=== PATIENT | male | born 1955 | race Caucasian/White ===

== ENCOUNTER 2016-06-03 15:15 | Emergency (ER) | payer MEDICAID ==
[~2016-06-03 15:15] MED LIST: ALBUTEROL; AMOXICILLIN500 M2 PO; AMOXICILLIN875 M1 PO; ASPIRIN81 MG PO; ATENOLOL100 MG; ATENOLOL100 MG PO; ATENOLOL50 M1 PO; ATIVAN1 M2 PO; ATIVAN1 MG; ATIVAN1 MG PO; CLINDAMYCIN HC300 M2 PO; CRESTOR20 MG PO; DICLOFENAC POTA50 M1 PO; ENALAPRIL MALEA20 MG; FENOFIBRATE145 M2 PO; FLEXERIL10 MG PO; HYDROCODON-ACE1 EA16 PO; IBUPROFEN200 M1 PO; LIPITOR20 MG PO; LISINOPRIL20 M1 PO; NORCO 10/325 TA1 TAB PO; NORCO 5-325 TA1 EACH PO; NORCO 5/325 TAB1 TAB PO; NORVASC5 M2 PO; NORVASC5 MG; NORVASC5 MG PO; OXYCODONE HCL5 M1 PO; PENICILLIN V P500 M1 PO; PERCOCET 10-321 EACH PO; PERCOCET 5-3251 EACH PO; PERCOCET 5/3251 TAB; PERCOCET 5/3251 TAB PO; PRILOSEC OTC20 MG PO; PROTONIX40 MG; PROVENTIL HFA6.7 G1 INH; ROSUVASTATIN CA20 MG PO; SPIRIVA18 MC1 IH; SYMBICORT 160-4.6 GM IH; TRAMADOL HCL50 M2 PO; TRILIPIX135 MG PO; ULTRAM50 M1 PO; ZOFRAN ODT4 MG PO; ZOFRAN4 M2 PO
[2016-06-03] MEDS ORDERED: PERCOCET 10-321 EACH PO (15:29)
[2016-06-03] MEDS ORDERED: KLONOPIN2 M1 PO (15:30)
[2016-06-03] MEDS ORDERED: ZOFRAN ODT4 MG SL (15:32)
[2016-06-03] MEDS ORDERED: ALBUTEROL2.5 MG/3 M INH (15:33)
[2016-06-03] MEDS ORDERED: OMEPRAZOLE20 M3 PO (15:34)
[2016-06-03] MEDS ORDERED: FLOMAX0.4 M1 PO (15:34)
[2016-06-03] MEDS ORDERED: SYMBICORT 160-1 PUFF INH (15:35)
[2016-11-11] MEDS ORDERED: ATIVAN1 M2 PO (20:55)
[2016-11-16] MEDS ORDERED: NICODERM CQ1 EAC2 TOP (15:23)
[2016-11-16] MEDS ORDERED: OXYCODONE IR PO (15:24)
[2016-11-16] MEDS ORDERED: STOP HOME MEDICATION (15:26)
[2016-12-05] MEDS ORDERED: KLONOPIN1 M1 PO (23:41)
[2016-12-05] MEDS ORDERED: PERCOCET 10-321 EACH PO (23:42)
[2016-12-05] MEDS ORDERED: VIBRAMYCIN100 M1 PO (23:43)
[2016-12-05] MEDS ORDERED: NYSTATIN100000 UNI SSW (23:43)
[2016-12-06] MEDS ORDERED: PROMETHAZINE-C118 ML PO (00:09)
[2016-12-06] MEDS ORDERED: DELTASONE20 MG PO (00:09)
== END 2016-06-03 17:00 ==
LOC: EDMED 15:15
DX: J06.9 Acute upper respiratory infection, unspecified (principal); J44.9 Chronic obstructive pulmonary disease, unspecified; F17.210 Nicotine dependence, cigarettes, uncomplicated

== ENCOUNTER 2016-06-19 18:16 | Emergency (ER) | payer MEDICAID ==
[~2016-06-19 18:16] MED LIST changes: +ALBUTEROL2.5 MG/3 M INH; +FLOMAX0.4 M1 PO; +KLONOPIN2 M1 PO; +OMEPRAZOLE20 M3 PO; +SYMBICORT 160-1 PUFF INH; +ZOFRAN ODT4 MG SL
[2016-06-19] MEDS ORDERED: DICYCLOMINE HCL20 M1 PO (19:15)
[2016-06-19] MEDS ORDERED: NYSTATIN100000 UNI SSW (20:54)
[2016-06-19] MEDS ORDERED: AZITHROMYCIN250 M1 PO (20:54)
[2016-06-19] MEDS ORDERED: PROMETHAZINE-C118 ML PO (20:54)
[2016-11-11] MEDS ORDERED: ATIVAN1 M2 PO (20:55)
[2016-11-16] MEDS ORDERED: NICODERM CQ1 EAC2 TOP (15:23)
[2016-11-16] MEDS ORDERED: OXYCODONE IR PO (15:24)
[2016-11-16] MEDS ORDERED: STOP HOME MEDICATION (15:26)
[2016-12-05] MEDS ORDERED: KLONOPIN1 M1 PO (23:41)
[2016-12-05] MEDS ORDERED: PERCOCET 10-321 EACH PO (23:42)
[2016-12-05] MEDS ORDERED: NYSTATIN100000 UNI SSW (23:43)
[2016-12-05] MEDS ORDERED: VIBRAMYCIN100 M1 PO (23:43)
[2016-12-06] MEDS ORDERED: DELTASONE20 MG PO (00:09)
[2016-12-06] MEDS ORDERED: PROMETHAZINE-C118 ML PO (00:09)
== END 2016-06-19 21:05 ==
LOC: EDMED 18:16
DX: J44.9 Chronic obstructive pulmonary disease, unspecified (principal); J20.9 Acute bronchitis, unspecified; B37.0 Candidal stomatitis; E11.9 Type 2 diabetes mellitus without complications; I10 Essential (primary) hypertension; F17.200 Nicotine dependence, unspecified, uncomplicated; Z79.899 Other long term (current) drug therapy

== ENCOUNTER 2016-09-04 12:27 | Emergency (ER) | payer MEDICAID ==
[~2016-09-04 12:27] MED LIST changes: +AZITHROMYCIN250 M1 PO; +DICYCLOMINE HCL20 M1 PO; +NYSTATIN100000 UNI SSW; +PROMETHAZINE-C118 ML PO
[2016-09-04] MEDS ORDERED: PERCOCET 10-321 EACH PO (12:53)
[2016-09-04] MEDS ORDERED: ALBUTEROL2.5 MG/3 M NEB (12:55)
[2016-09-04] MEDS ORDERED: MOVANTIK25 MG PO (13:21)
[2016-09-04 13:30] LABS: BASO % 0.2 % (0-2); EOS % 0.6 % (0-7); EOSINOPHIL ABSOLUTE COUNT 0.1 tho/cmm (0.0-0.7); HCT-HEMATOCRIT 41.1 % (36.0-53.5); HGB-HEMOGLOBIN 14.6 gm/dl (13.5-17.0); IMMATURE GRANULOCYTES ABSOLUTE 0.05 tho/cmm (0-0.03); IMMATURE GRANULOCYTES PERCENT 0.4 % (0-0.3); LYMPH % 10.7 % (20-45); LYMPH ABSOLUTE COUNT 1.3 tho/cmm (0.8-4.5); MCH (MEAN CORPUSCULAR HGB) 33.4 pg (28.0-32.0); MCHC MEAN CORPUSCULAR HGB CONC 35.5 % (32.0-36.0); MCV (MEAN CELL VOLUME) 94.1 fl (82.0-96.0); MONO % 5.3 % (0-12); MONOCYTE ABSOLUTE COUNT 0.7 tho/cmm (0.0-1.2); NEUTROPHIL ABSOLUTE COUNT 10.3 tho/cmm (1.6-8.0); NEUTROPHIL-AUTOMATED 10.3 tho/cmm (1.6-8.0); NEUTROPHILS % 82.8 % (40-80); PLATELET COUNT 248 tho/cmm (150-450); RED BLOOD COUNT 4.37 mil/cmm (4.40-5.70); RED CELL DISTRIBUTION WIDTH 12.5 % (12.4-16.4); WHITE BLOOD COUNT 12.4 tho/cmm (4.0-10.0)
[2016-09-04 13:41] LABS: ALB/GLOB RATIO 1.3 (0.8-2.0); ALBUMIN 4.1 g/dl (3.5-5.0); ALCOHOL (ETOH) <10 mg/dl (<10); ALKALINE PHOSPHATASE 62 U/L (33-138); ALT/SGPT 31 U/L (12-78); ANION GAP 14 mmol/L (0-20); AST/SGOT 25 U/L (10-40); BILIRUBIN,TOTAL 0.4 mg/dl (0.0-1.5); BLOOD UREA NITROGEN 16 mg/dl (6-24); CALCIUM 9.4 mg/dl (8.5-10.5); CARBON DIOXIDE-VENOUS 21 mmol/L (22-32); CHLORIDE 109 mmol/l (96-110); CREATININE 1.12 mg/dl (0.60-1.30); GLUCOSE 91 mg/dL (70-110); LIPASE 114 U/L (73-393); POTASSIUM 4.7 mmol/L (3.7-5.1); SODIUM 139 mmol/L (135-145); eGFR VALUE FOR BLACK 82 mL/Min
[2016-09-04] MEDS ORDERED: ASPIRIN EC325 M1 PO (13:59)
[2016-09-04 14:12] LABS: URINE BILIRUBIN NEGATIVE (NEG); URINE BLOOD NEGATIVE (NEG); URINE GLUCOSE (UA) NEGATIVE (NEG); URINE KETONE NEGATIVE (NEG); URINE LEUKOCYTE ESTERASE NEGATIVE (NEG); URINE NITRITE NEGATIVE (NEG); URINE PROTEIN NEGATIVE (NEG); URINE SPECIFIC GRAVITY 1.005 (1.003-1.030)
[2016-09-04 14:18] LABS: URINE APPEARANCE CLEAR; URINE COLOR YELLOW
[2016-09-04 14:24] LABS: URINE EPITHELIAL CELLS 0-1 /[HPF] (0-10); URINE RBC 0 /[HPF] (0-5); URINE WBC 0 /[HPF] (0-5)
[2016-09-04] MEDS ORDERED: FLAGYL500 M1 PO (15:40)
[2016-09-04] MEDS ORDERED: NORCO 5-325 TA1 EACH PO (15:40)
[2016-09-04] MEDS ORDERED: CIPRO500 M2 PO ×2 (15:40→15:42)
[2016-11-11] MEDS ORDERED: ATIVAN1 M2 PO (20:55)
[2016-11-16] MEDS ORDERED: NICODERM CQ1 EAC2 TOP (15:23)
[2016-11-16] MEDS ORDERED: OXYCODONE IR PO (15:24)
[2016-11-16] MEDS ORDERED: STOP HOME MEDICATION (15:26)
[2016-12-05] MEDS ORDERED: KLONOPIN1 M1 PO (23:41)
[2016-12-05] MEDS ORDERED: PERCOCET 10-321 EACH PO (23:42)
[2016-12-05] MEDS ORDERED: VIBRAMYCIN100 M1 PO (23:43)
[2016-12-05] MEDS ORDERED: NYSTATIN100000 UNI SSW (23:43)
[2016-12-06] MEDS ORDERED: PROMETHAZINE-C118 ML PO (00:09)
[2016-12-06] MEDS ORDERED: DELTASONE20 MG PO (00:09)
== END 2016-09-04 16:00 ==
LOC: EDMED 12:27
PROVIDERS: Emergency Medicine
DX: K52.9 Noninfective gastroenteritis and colitis, unspecified (principal); I10 Essential (primary) hypertension; E78.5 Hyperlipidemia, unspecified; F17.210 Nicotine dependence, cigarettes, uncomplicated; Z87.19 Personal history of other diseases of the digestive system; Z79.899 Other long term (current) drug therapy
CPT/HCPCS: G0480; J1170; J2060; J2405; Q9967